=== PATIENT | female | born 1945 | race Caucasian/White ===

== ENCOUNTER → 2016-08-21 | Outpatient (CLI) | payer OTHER ==
--- NOTE | 2016-08-21 20:59 | REP ---
LEFT FOOT, FOUR VIEWS: HISTORY: Pain. There is no acute fracture or dislocation. There is narrowing of the intermediate , distal and first metatarsophalangeal joint spaces. IMPRESSION: Degenerative change as described above. Signed by Lamont Echeverria MD 08/22/2016 07:46 A
== END ==
LOC: M WUC 14:29
PROVIDERS: ATTEND Nurse Practitioner Adult Health
DX: M79.672 Pain in left foot (principal); R22.42 Localized swelling, mass and lump, left lower limb

== ENCOUNTER → 2016-10-20 | Outpatient (REF) | payer OTHER ==
[2016-10-25 00:06] LABS: DOPAMINE PLASMA 69 pg/mL (0-48); EPINEPHRINE PLASMA 35 pg/mL (0-62); NOREPINEPHRINE PLASMA 499 pg/mL (0-874)
== END ==
LOC: M LAB REF 11:58
PROVIDERS: ATTEND Nurse Practitioner Adult Health
DX: D44.12 Neoplasm of uncertain behavior of left adrenal gland (principal)

== ENCOUNTER → 2016-10-21 | Outpatient (REF) | payer OTHER ==
[2016-10-25 00:06] LABS: METANEPHRINE URINE 96 ug/24 hr (45-290); NORMETANEPHRINE URINE 357 ug/24 hr (82-500)
== END ==
LOC: M LAB REF 10:34
PROVIDERS: ATTEND Nurse Practitioner Adult Health
DX: D44.12 Neoplasm of uncertain behavior of left adrenal gland (principal)

== ENCOUNTER → 2020-05-14 | Outpatient (CLI) | payer SELFPAY | LOC: M LABSMTC 09:36 | PROVIDERS: ATTEND Pediatrics | DX: Z20.822 Contact with and (suspected) exposure to COVID-19 (principal) ==

== ENCOUNTER → 2020-11-20 | Outpatient (CLI) | payer MEDICARE | LOC: M WHC 08:44 | PROVIDERS: ATTEND Nurse Practitioner Adult Health | DX: Z12.31 Encounter for screening mammogram for malignant neoplasm of breast (principal) ==

== ENCOUNTER → 2022-06-24 | Outpatient (CLI) | payer MEDICARE ==
[~2022-06-24] MED LIST: ALBU2.5V10 INH; AMLO1TAB24 PO; BISO10TA14 PO; GLIP5TAB20 PO; HYDR12.55 PO; LIDOCAINE 1% MDV 20ML VIAL As Ordered ONE; OMEP40CA4 PO; ROSU20TA5 PO; SPIR-10 PO
[2022-06-24 09:55] VITALS: BP 187/86
== END ==
LOC: M IRPRO 08:54
PROVIDERS: ATTEND Otolaryngology
DX: E07.9 Disorder of thyroid, unspecified (principal)

== ENCOUNTER → 2022-11-25 | Outpatient (CLI) | payer MEDICARE ==
[~2022-11-25] MED LIST changes: -LIDOCAINE 1% MDV 20ML VIAL As Ordered ONE; -ROSU20TA5 PO; +ROSU20TA61 PO
== END ==
LOC: M RAD 12:38
PROVIDERS: ATTEND Otolaryngology
DX: E04.2 Nontoxic multinodular goiter (principal)

== ENCOUNTER → 2023-06-04 | Outpatient (CLI) | payer MEDICARE | LOC: M RAD 10:34 | PROVIDERS: ATTEND Otolaryngology | DX: E04.2 Nontoxic multinodular goiter (principal) ==